=== PATIENT | female | born 1950 | race Caucasian/White ===

== ENCOUNTER → 2019-12-11 | Outpatient (CLI) | payer OTHER ==
[~2019-12-11] VITALS: Ht 157.5 cm; Wt 74.8 kg
[~2019-12-11] MED LIST: ASA81BEC PO; CLOBETASOL 0.0560 GM TOP; FOLIC ACID1 MG PO; MULTI VITAMIN1 EACH PO; NEURONTIN100 MG PO; TRIAMTERENE-HC1 EAC1 PO; TYLENOL325 M1 PO; VITAMIN B-121000 MCG PO
--- NOTE | 2019-12-12 13:37 | P ---
[facility] [place] [address] PROCEDURE REPORT Name: JOAN DIGGS Room #: REG [facility]#: [id number] Admission: 12/11/19 Attend Phys: Fermin Mai MD Discharge: Date of : 50 Report #: [id number] THIS REPORT FOR: cc: Diana Bey MD, Lois MD Thesing,Fermin Guzman MD ~ CC: DAMIAN Bey DATE OF SERVICE: 12/11/2019 BRIEF HISTORY: The patient is a 69-year-old woman with history of 4 colon adenomas in the past. She presents for high risk screening colonoscopy. PREOPERATIVE DIAGNOSIS: High risk screening colonoscopy. POSTOPERATIVE DIAGNOSES: Multiple colon polyps. MEDICATIONS: Deep sedation with propofol per Anesthesia. SPECIMENS: 1. Diminutive polyp, cecum. 2. Diminutive polyp, proximal ascending colon x 2. 3. Diminutive polyp, transverse colon. 4. Diminutive polyp, splenic flexure x 2. ESTIMATED BLOOD LOSS: 3 mL. PROCEDURE: Colonoscopy to cecum and terminal ileum with snare polypectomy and biopsy. FINDINGS: Prior to propofol sedation, procedure of colonoscopy discussed with the patient as well as potential risks and its complications. She indicates she understands and desires to proceed. DESCRIPTION OF PROCEDURE: With the patient in left lateral decubitus position, digital examination was completed, which revealed no abnormalities. Subsequently, the Olympus video colonoscope was introduced into the rectum, advanced under direct vision to the cecum. Done with minimal difficulty. The cecum was identified by the ileocecal valve and the appendiceal orifice. I was able to advance the tip of the scope in the mouth of the ileocecal valve and see a villous pattern. However, due to looping, the scope could not be deeply advanced into the terminal ileum. At that point, the scope was slowly withdrawn and careful circumferential views were obtained including retroflexion of the [facility] [address] [place] [address] PROCEDURE REPORT Name: JOAN DIGGS Room #: REG [facility].#: [id number] Admission: 12/11/19 Attend Phys: Fermin Mai MD Discharge: Date of : 50 Report #: [id number] scope in the ascending colon. As we withdrew the scope, the mucosa was inspected. Her prep was excellent. As we withdrew the scope, a diminutive polyp was seen in the cecum, removed with biopsy forceps. In the proximal ascending colon, 2 more diminutive polyps were seen and removed with biopsy forceps. At the proximal transverse colon, another diminutive polyp was seen and was slightly larger and removed by cold snare polypectomy and recovered. The scope was further withdrawn, no additional abnormalities were noted until the splenic flexure was reached, at which point 2 diminutive polyps were seen. One was removed by cold snare polypectomy. It was about 4-5 mm flat lesion covered with mucus which may be serrated adenoma. Another diminutive polyp was seen in the same area, which had the appearance of a tubular adenoma and was removed with biopsy forceps. Scope was further withdrawn. No additional neoplastic lesions were seen. The scope was withdrawn in the rectum. No abnormalities were seen. Upon retroflexion, the anal verge was noted to be unremarkable. Scope was withdrawn. The patient tolerated the procedure well. CONDITION OF THE PATIENT UPON DISCHARGE: Following procedure, the patient was drowsy, arousable, conversant and will be discharged to home when fully ambulatory. INSTRUCTIONS TO THE PATIENT AND FAMILY AT THE TIME OF DISCHARGE: A total of 6 polyps were identified and removed today. We will follow up on the path and make surveillance recommendations. If 3 or more polyps are adenomas, she should return in 3 years. If only 1 or 2 adenomas, then 5 years would be indicated. Last colonoscopy was about 5 years ago. Withdrawal time from cecum was 16 minutes and 3 seconds. <ELECTRONICALLY SIGNED> By: Fermin Mai MD 12/12/19 1337 [id number] Fermin Mai MD /nt
--- NOTE | 2019-12-12 17:15 | PATH ---
[facility] [place] [address] PATHOLOGY RPT PROCEDURE Name: FABI DIGGS Gareth Room #: REG [facility].#: [id number] Admission: 12/11/19 Date of : 50 Discharge: Report #: [id number] Path Case #: [id number] [facility] Accession Number: [id number] . 01 Material submitted: . PART A: cecum - CECAL POLYP PART B: colon - PROXIMAL ASCENDING COLON POLYP X2. Modifiers: proximal, ascending PART C: colon - PROXIMAL TRANSVERSE COLON POLYP. Modifiers: proximal, transverse PART D: splenic flexure - SPLENIC FLEXURE POLYP X2 . 01 Clinician provided ICD-10: [id number] . 01 Clinical history: . Hx of polyps . 02 Diagnosis: A. Polyp, cecal polyp, endoscopic biopsy: - Inflamed tubular adenoma. - Negative for high-grade dysplasia. . B. Polyp x 2, proximal ascending colon polyp, endoscopic biopsy: - Tubular adenoma identified in one fragment; negative for high-grade dysplasia. - Remainder fragments showing hyperplastic changes; negative for dysplasia. . C. Polyp, proximal transverse colon polyp, endoscopic biopsy: - Tubular adenoma identified in multiple fragments. - Negative for high-grade dysplasia. . D. Polyp x 2, splenic flexure, endoscopic biopsy: - Tubular adenoma. - Negative for high-grade dysplasia. - One fragment showing a lymphoid aggregate. (IUV:pit 12/12/2019) [facility] 12/12/2019 1158 Local . 02 Electronically signed: . Jie Coe MD, Pathologist NPI- [id number] . 01 Gross description: . A. The specimen is received in formalin labeled "Fabi Diggs, cecal polyp" and consists of 2 fragments of cooley tissue measuring 0.8 x 0.3 x [address] [address] PATHOLOGY RPT PROCEDURE Name: FABI DIGGS R Room #: REG [facility].#: [id number] Admission: 12/11/19 Date of : 50 Discharge: Report #: [id number] Path Case #: [id number] cm in aggregate which are entirely submitted in A1. . B. The specimen is received in formalin labeled "Fabi Diggs, proximal ascending colon polyp x2" and consists of multiple fragments of cooley tissue measuring 1.1 x 0.2 x 0.2 cm in aggregate which are entirely submitted in B1. . C. The specimen is received in formalin labeled "Edinson, Fabi, proximal transverse colon polyp" and consists of multiple fragments of cooley tissue measuring 0.6 x 0.4 x 0.2 cm in aggregate which are entirely submitted in C1. . D. The specimen is received in formalin labeled "Edinson, Fabi, splenic flexure polyp x2" and consists of 2 fragments of cooley brown tissue measuring 0.8 x 0.3 x 0.2 cm in aggregate which are entirely submitted in D1. (NITIN; 12/11/2019) [facility] 12/11/2019 1602 Local . 02 Pathologist provided ICD-10: D12.0, D12.2, D12.3, Z86.010 . 02 CPT . 247902, 361494, 564049, 913401 Specimen Comment: A courtesy copy of this report has been sent to [phone], [phone] Specimen Comment: [id number] Specimen Comment: Report sent to ,DR ALVAREZ / DR WALL Performed at: [address] [facility], [place] [id number] MD Rico Pinzon MD Phone: [phone] Performed at: [address] [id number] MD Jie Coe MD Phone: [phone]
== END | disposition home or self-care (01) ==
LOC: GI 06:31
PROVIDERS: ATTEND Specialist
DX: Z12.11 Encounter for screening for malignant neoplasm of colon (principal); Z86.010 Personal history of colon polyps; D12.0 Benign neoplasm of cecum; D12.2 Benign neoplasm of ascending colon; D12.3 Benign neoplasm of transverse colon; I10 Essential (primary) hypertension; Z98.890 Other specified postprocedural states; Z79.899 Other long term (current) drug therapy; Z11.59 Encounter for screening for other viral diseases; Z85.828 Personal history of other malignant neoplasm of skin; Z90.710 Acquired absence of both cervix and uterus; Z98.51 Tubal ligation status; Z79.82 Long term (current) use of aspirin
CPT/HCPCS: 62110; 62900